=== PATIENT | male | born 1995 | race Caucasian/White ===

== ENCOUNTER 2016-10-08 13:58 | Emergency (ER) | payer SELFPAY ==
[2016-10-08 14:24] VITALS: BP 124/77
[2016-10-08] MEDS ORDERED: NAPROXEN 500 MG TABLET PO STA (14:30)
[2016-10-08] MEDS ORDERED: HYDROcodone/APAP 5/325MG 1 TAB TABLET PO ONE (14:30)
[2016-10-08] MEDS ORDERED: ACET-704 PO (14:37)
[2016-10-08] MEDS ORDERED: TRAM-48 PO (14:37)
[2016-10-08] MEDS ORDERED: AMOX875T PO (14:37)
--- NOTE | 2016-10-08 14:37 | PHYS DOC ---
Past Medical History Past Medical History: No Pertinent History Past Surgical History: No Surgical History Alcohol Use: None Drug Use: None Adult General Chief Complaint Chief Complaint: DENTAL PROBLEM HPI HPI Patient is a 20 year old male who presents with moderate left lower gum dental pain that began yesterday. Patient denies any fever or trismus. Review of Systems Review of Systems Constitutional: Denies fever or chills [] Eyes: Denies change in visual acuity, redness, or eye pain [] HENT: Dental pain Musculoskeletal: Denies back pain or joint pain [] Integument: Denies rash or skin lesions [] Neurologic: Denies headache, focal weakness or sensory changes [] Endocrine: Denies polyuria or polydipsia [] Allergies Allergies Allergies Coded Allergies Type Severity Reaction Last Updated Verified No Known Drug Allergies 10/08/16 No Physical Exam Physical Exam Constitutional: Well developed, well nourished, no acute distress, non-toxic appearance. [] HENT: Normocephalic, atraumatic, bilateral external ears normal, oropharynx moist, no oral exudates, nose normal. [] Tooth #20 is decayed and broken, scattered dental caries noted throughout his teeth. No gum redness or swelling. Skin: Warm, dry, no erythema, no rash. [] Extremities: No tenderness, no cyanosis, no clubbing, ROM intact, no edema. [] Neurologic: Alert and oriented X 3, normal motor function, normal sensory function, no focal deficits noted. [] Psychologic: Affect normal, judgement normal, mood normal. [] Current Patient Data Vital Signs Vital Signs Date Time Temp Pulse Resp B/P (MAP) Pulse Ox O2 Delivery O2 Flow Rate FiO2 10/08/16 14:24 97.9 82 18 97 Room Air 97.9 EKG EKG [] Radiology/Procedures Radiology/Procedures [] Course & Med Decision Making Course & Med Decision Making Pertinent Labs and Imaging studies reviewed. (See chart for details) Patient has infected dental caries. Discharged with amoxicillin and Ultram and Tylenol #3 for pain. Follow-up with the dentist from the list provided. Dragon Disclaimer Dragon Disclaimer This electronic medical record was generated, in whole or in part, using a voice recognition dictation system. Departure Departure Impression: Primary Impression: Dentalgia Additional Impression: Infected dental caries Disposition: HOME, SELF-CARE Condition: STABLE Referrals: NO PCP (PCP) Follow-up with a dentist from the list provided as soon as possible Patient Instructions: Dental Caries Additional Instructions: You were seen for infected dental caries. Ensure you complete your antibiotics. Follow-up with the dentist from the provided dental list in 1-2 weeks. Come back to the ED if symptoms worsen. Scripts Amoxicillin (AMOXICILLIN) 875 Mg Tablet 1 TAB PO BID, #20 TAB Prov: BERNARDINO LORENZO APRN 10/08/16 Acetaminophen With Codeine (TYLENOL WITH CODEINE #3 TABLET) 1 Each Tablet 1 TAB PO PRN Q6HRS Y for PAIN, #30 TAB Prov: BERNARDINO LORENZO APRN 10/08/16 Tramadol Hcl (ULTRAM) 50 Mg Tablet 1 TAB PO Q6HRS, #30 TAB Prov: BERNARDINO LORENZO APRN 10/08/16 Problem Qualifiers BERNARDINO LOREZNO APRN Oct 08, 2016 14:37
== END 2016-10-08 14:41 | disposition home or self-care (01) ==
LOC: ER 13:58
DX: K02.9 Dental caries, unspecified (principal); K04.7 Periapical abscess without sinus
CPT/HCPCS: 99283